=== PATIENT | female | born 2005 | race Hispanic/Latino ===

== ENCOUNTER 2023-11-01 18:23 | Emergency (ER) | payer OTHER, SELFPAY ==
[2023-11-01] MEDS ORDERED: Acetaminophen 325 MG TAB ONE (18:55)
[2023-11-01 19:32] LABS: SARS-CoV-2 NAA Rapid Test Not Detected (NotDetected)
[2023-11-01] MEDS ORDERED: Ibuprofen 200 MG TAB ONE (21:18)
== END 2023-11-01 21:24 | disposition home or self-care (01) ==
LOC: ERS 18:23
DX: J10.1 Influenza due to other identified influenza virus with other respiratory manifestations (principal)
CPT/HCPCS: 99284